=== PATIENT | male | born 1960 | race Two or more races ===

== ENCOUNTER 2016-06-28 02:38 | Inpatient (IN) | payer BC ==
[2016-06-28] MEDS ORDERED: Sodium Chloride 0.9% 1,000 ML IV ONE (02:39)
--- NOTE | 2016-06-28 02:40 | EDM.PDOC ---
ED HPI GENERAL MEDICAL PROBLEM - General Chief Complaint: General Stated Complaint: DIZZINESS Time Seen by Provider: 06/28/16 02:40 Source of Information: Reports: Patient - History of Present Illness INITIAL COMMENTS - FREE TEXT/NARRATIVE: HISTORY AND PHYSICAL: History of present illness: [] Patient presents with dizziness off and on since 8 PM Has multiple sick contacts at work, at approximately 840 tonight she began to feel dizzy while at work, he went home early to rest dizziness had resolved, although he did have 4-6 loose watery stools at that time, tonight he awoke to go to the bathroom and he was again dizzy, his was concerned and called for an ambulance. No fever nausea vomiting diarrhea constipation chest pain shortness breath headache palpitations no urinary symptoms dizziness only present while he stands EMS noted he was orthostatic began a 1 L normal saline bolus He does have history of [place] in 2006 Colonoscopy to 4 months prior patient states was negative for any findings Review of systems: As per history of present illness and below otherwise all systems reviewed and negative. Past medical history: As per history of present illness and as reviewed below otherwise noncontributory. Surgical history: As per history of present illness and as reviewed below otherwise noncontributory. Social history: No reported history of drug or alcohol abuse. Family history: As per history of present illness and as reviewed below otherwise noncontributory. Physical exam: HEENT: Atraumatic, normocephalic, pupils reactive, negative for conjunctival pallor or scleral icterus, mucous membranes moist, throat clear, neck supple, nontender, trachea midline. Lungs: Clear to auscultation, breath sounds equal bilaterally, chest nontender. Heart: S1S2, regular, negative for clicks, rubs, or JVD. Abdomen: Soft, nondistended, nontender. Negative for masses or hepatosplenomegaly. Negative for costovertebral tenderness. Pelvis: Stable nontender. Genitourinary: Deferred. Rectal: Deferred. Extremities: Atraumatic, negative for cords or calf pain. Neurovascular unremarkable. Neuro: Awake, alert, oriented. Cranial nerves II through XII unremarkable. Cerebellum unremarkable. Motor and sensory unremarkable throughout. Exam nonfocal. Diagnostics: [] Lab as below EKG Chest one view Therapeutics: [] Liter normal saline bolus followed by normal saline 125 cc per hour Transfuse 2 units packed red blood cells Protonix 80 mg IV Protonix drip to follow Impression: Symptomatic anemia GI bleed Definitive disposition and diagnosis as appropriate pending reevaluation and review of above. - Related Data Allergies Allergy/AdvReac Type Severity Reaction Status Date / Time No Known Allergies Allergy Verified 12/28/13 08:50 Home Meds: Home Meds Aspirin 81 mg PO DAILY 06/28/16 [History] Lisinopril [Lisinopril] 10 mg PO DAILY 06/28/16 [History] atorvaSTATin [Lipitor] 40 mg PO BEDTIME 06/28/16 [History] ED ROS GENERAL - Review of Systems Review Of Systems: ROS reveals no pertinent complaints other than HPI. ED EXAM, GENERAL - Physical Exam Exam: See Below Course - Vital Signs Last Recorded V/S: Last Vital Signs Temp 36.4 C 06/28/16 02:40 Pulse 93 06/28/16 02:40 Resp 16 06/28/16 02:40 BP 114/68 06/28/16 02:40 Pulse Ox 99 06/28/16 02:40 - Orders/Labs/Meds Orders: Active Orders 24 hr Category Date Time Status EKG Documentation Completion [RC] STAT Care 06/28/16 02:39 Active Fecal Occult Blood Collection [RC] ASDIRECTED Care 06/28/16 03:17 Active Chest 1V Frontal [CR] Stat Exams 06/28/16 02:39 Taken COMPREHENSIVE METABOLIC PN,CMP [CHEM] Stat Lab 06/28/16 02:43 Received Guaiac [OCCULT BLOOD DIAGNOSTIC] [OP] Stat Lab 06/28/16 03:13 Ordered INR,PT,PROTHROMBIN TIME [COAG] Stat Lab 06/28/16 03:24 Ordered RED BLOOD CELLS LP [BBK] Stat Lab 06/28/16 03:07 Ordered TROPONIN I [CHEM] Stat Lab 06/28/16 02:43 Received TYPE AND SCREEN [BBK] Stat Lab 06/28/16 03:07 Ordered Pantoprazole [Protonix IV] 80 mg Med 06/28/16 03:30 Active Sodium Chloride 0.9% [Normal Saline] 100 ml IV .Continuous Sodium Chloride 0.9% [Normal Saline] 1,000 ml Med 06/28/16 02:39 Active IV STAT Medication Orders Sodium Chloride (Normal Saline) 1,000 mls @ 999 mls/hr IV STAT ONE Stop: 06/28/16 03:39 Last Admin: 06/28/16 02:44 Dose: 999 mls/hr Pantoprazole Sodium 80 mg/ (Sodium Chloride) 100 mls @ 10 mls/hr IV .Continuous EMANUEL Labs: Laboratory Tests 06/28/16 06/28/16 Range/Units 02:43 02:50 WBC 8.45 (4.0-11.0) K/uL RBC 2.75 L (4.50-5.90) M/uL Hgb 8.8 L (13.0-17.0) g/dL Hct 25.8 L (38.0-50.0) % MCV 93.8 (80.0-98.0) fL MCH 32.0 (27.0-32.0) pg MCHC 34.1 (31.0-37.0) g/dL RDW Std Deviation 37.6 (28.0-62.0) fl RDW Coeff of Mila 11 (11.0-15.0) % Plt Count 242 (150-400) K/uL MPV 8.60 (7.40-12.00) fL Neut % (Auto) 60.3 (48.0-80.0) % Lymph % (Auto) 29.6 (16.0-40.0) % [place] % (Auto) 9.3 (0.0-15.0) % Eos % (Auto) 0.6 (0.0-7.0) % Baso % (Auto) 0.2 (0.0-1.5) % Neut # 5.1 (1.4-5.7) K/uL Lymph # 2.5 H (0.6-2.4) K/uL [place] # 0.8 (0.0-0.8) K/uL Eos # 0.1 (0.0-0.7) K/uL Baso # 0.0 (0.0-0.1) K/uL Urine Color YELLOW Urine Appearance CLEAR Urine pH 6.0 (5.0-8.0) Ur Specific [place] 1.010 (1.001-1.035) Urine Protein NEGATIVE (NEGATIVE) mg/dL Urine Glucose (UA) NEGATIVE (NEGATIVE) mg/dL Urine Ketones 15 H (NEGATIVE) mg/dL Urine Occult Blood NEGATIVE (NEGATIVE) Urine Nitrite NEGATIVE (NEGATIVE) Urine Bilirubin NEGATIVE (NEGATIVE) Urine Urobilinogen 0.2 (<2.0) EU/dL Ur Leukocyte Esterase NEGATIVE (NEGATIVE) Urine WBC 0-1 (0-5/HPF) Ur Epithelial Cells RARE (NONE-FEW) Urine Bacteria RARE (NEGATIVE) Meds: Medications Generic Name Dose Route Start Last Admin Trade Name Freq PRN Reason Stop Dose Admin Sodium Chloride 1,000 mls @ 999 mls/hr 06/28/16 02:39 06/28/16 02:44 Normal Saline IV 06/28/16 03:39 999 mls/hr STAT ONE Administration Pantoprazole Sodium 80 mg/ 100 mls @ 10 mls/hr 06/28/16 03:30 Sodium Chloride IV .Continuous EMANUEL Discontinued Medications Generic Name Dose Route Start Last Admin Trade Name Freq PRN Reason Stop Dose Admin Pantoprazole Sodium 80 mg 06/28/16 03:11 Protonix Iv IVPUSH 06/28/16 03:12 .BOLUS ONE Departure - Departure Time of Disposition: 03:26 Disposition: Admitted As Inpatient 68 Condition: fair Clinical Impression: Symptomatic anemia, GI bleed Referrals: PCP,None [Primary Care Provider] - Forms: ED Department Discharge - My Orders Last 24 Hours: My Active Orders 06/28/16 02:39 EKG Documentation Completion [RC] STAT Chest 1V Frontal [CR] Stat Sodium Chloride 0.9% [Normal Saline] 1,000 ml IV STAT 06/28/16 02:43 COMPREHENSIVE METABOLIC PN,CMP [CHEM] Stat TROPONIN I [CHEM] Stat 06/28/16 03:07 RED BLOOD CELLS LP [BBK] Stat TYPE AND SCREEN [BBK] Stat 06/28/16 03:13 Guaiac [OCCULT BLOOD DIAGNOSTIC] [OP] Stat 06/28/16 03:17 Fecal Occult Blood Collection [RC] ASDIRECTED 06/28/16 03:24 INR,PT,PROTHROMBIN TIME [COAG] Stat 06/28/16 03:30 Pantoprazole [Protonix IV] 80 mg Sodium Chloride 0.9% [Normal Saline] 100 ml IV .Continuous - Assessment/Plan Last 24 Hours: My Active Orders 06/28/16 02:39 EKG Documentation Completion [RC] STAT Chest 1V Frontal [CR] Stat Sodium Chloride 0.9% [Normal Saline] 1,000 ml IV STAT 06/28/16 02:43 COMPREHENSIVE METABOLIC PN,CMP [CHEM] Stat TROPONIN I [CHEM] Stat 06/28/16 03:07 RED BLOOD CELLS LP [BBK] Stat TYPE AND SCREEN [BBK] Stat 06/28/16 03:13 Guaiac [OCCULT BLOOD DIAGNOSTIC] [OP] Stat 06/28/16 03:17 Fecal Occult Blood Collection [RC] ASDIRECTED 06/28/16 03:24 INR,PT,PROTHROMBIN TIME [COAG] Stat 06/28/16 03:30 Pantoprazole [Protonix IV] 80 mg Sodium Chloride 0.9% [Normal Saline] 100 ml IV .Continuous
[2016-06-28] MEDS ORDERED: Pantoprazole 40 MG Vial IVPUSH ONE (03:11)
[2016-06-28 03:19] LABS: CHLORIDE,CL 108 mmol/L (98-110); SODIUM,NA 137 mmol/L (136-146)
[2016-06-28] MEDS: Sodium Chloride 0.9% 1,000 ML IV SCH ×2 (03:34→20:13)
[2016-06-28] MEDS: Pantoprazole 80 MG in Sodium Chloride 0.9% 100 ML IV SCH ×3 (04:12→17:04)
[2016-06-28] MEDS ORDERED: Flu Vaccine 2016-17(36Mos+)/PF 60 MCG/0.5 ML Syringe IM ONE (04:42)
[2016-06-28] MEDS: Sucralfate Suspension 1 GM/10 ML Cup PO SCH ×4 (05:24→21:43)
--- NOTE | 2016-06-28 09:32 | PCM.HP ---
H&P History of Present Illness - General Date of Service: 06/28/16 - History of Present Illness Initial Comments - Free Text/Narative: 55 yo male with history of [place] admitted for UGIB. He had first episode of dizziness last night at work. He came home and rested. He had loose non-bloody stools x 4. His dizziness returned when he tried to use the restroom. He denies chest pain, sob, abdominal pain, fever, chills, vomiting. His was concerned and called EMS. In the ED, He was found to have + guaic stool, HB 8.8. He was given IVF and started on protonix drip. Dr. Miller general surgery consulted. He recommended protocol for GIB. - Related Data Allergies/Adverse Reactions: Allergies Allergy/AdvReac Type Severity Reaction Status Date / Time No Known Allergies Allergy Verified 12/28/13 08:50 Home Medications: Home Meds Aspirin 81 mg PO DAILY 06/28/16 [History] Lisinopril [Lisinopril] 10 mg PO DAILY 06/28/16 [History] atorvaSTATin [Lipitor] 40 mg PO BEDTIME 06/28/16 [History] Past Medical History Cardiovascular History: Reports: Hypertension, [place], Stents Social & Family History - Family History Family Medical History: Noncontributory - Tobacco Use Smoking Status *Q: Never Smoker Second Hand Smoke Exposure: No - Caffeine Use Caffeine Use: Reports: Coffee - Recreational Drug Use Recreational Drug Use: No H&P Review of Systems - Review of Systems: Review Of Systems: See Below General: Reports: no symptoms HEENT: Reports: no symptoms Pulmonary: Reports: no symptoms Cardiovascular: Reports: no symptoms Gastrointestinal: Reports: No symptoms Genitourinary: Reports: no symptoms Musculoskeletal: Reports: no symptoms Skin: Reports: no symptoms, erythema Psychiatric: Reports: no symptoms Neurological: Reports: dizziness Hematologic/Lymphatic: Reports: no symptoms Immunologic: Reports: no symptoms Exam - Exam Exam: See Below - Vital Signs Vital Signs: Last Vital Signs Temp 98.8 F 06/28/16 09:25 Pulse 73 06/28/16 09:25 Resp 18 06/28/16 09:25 BP 100/57 L 06/28/16 09:25 Pulse Ox 97 06/28/16 09:25 Weight: 89.993 kg - Exam Quality Assessment: supplemental oxygen General: alert, oriented HEENT: Conjunctiva clear, EOMI Neck: supple, trachea midline Lungs: Clear to auscultation, Normal respiratory effort Cardiovascular: regular rate, regular rhythm Abdomen: normal bowel sounds, soft Back Exam: normal inspection Extremities: normal inspection Peripheral Pulses: 2+: dorsalis pedis (L), dorsalis pedis (R) Skin: warm, dry, intact Neurological: cranial nerves intact Neuro Extensive - Mental Status: alert, oriented x3, normal mood/affect, normal cognition Psychiatric: alert, normal affect, normal mood - Patient Data Result Diagrams: 06/28/16 02:43 06/28/16 02:43 *Q Meaningful Use (ADM) - VTE *Q VTE Criteria *Q: - Stroke *Q Stroke Criteria *Q: - AMI *Q AMI Criteria *Q: Problem List Initiated/Reviewed/Updated: Yes Orders Last 24hrs: Active Orders 24 hr Category Date Time Status Communication Order [RC] ROUTINE Care 06/28/16 04:25 Active Communication Order [RC] ROUTINE Care 06/28/16 04:27 Active Communication Order [RC] ROUTINE Care 06/28/16 04:29 Active Telemetry Monitoring [Cardiac Monitoring] [RC] . Care 06/28/16 04:28 Active DIRECTED Clear Liquid Diet [DIET] Diet 06/28/16 Breakfast Active Sodium Chloride 0.9% [Normal Saline] 1,000 ml Med 06/28/16 03:45 Active IV ASDIRECTED Sucralfate [Carafate] Med 06/28/16 04:30 Active 1 gm PO Q6H Transfuse Red Blood Cells [COMM] Routine Oth 06/28/16 04:24 Ordered Medication Orders Pantoprazole Sodium 80 mg/ (Sodium Chloride) 100 mls @ 10 mls/hr IV .Continuous EMANUEL Last Admin: 06/28/16 04:12 Dose: 10 mls/hr Sodium Chloride (Normal Saline) 1,000 mls @ 125 mls/hr IV ASDIRECTED EMANUEL Last Admin: 06/28/16 03:34 Dose: 125 mls/hr Sucralfate (Carafate) 1 gm PO Q6H EMANUEL Last Admin: 06/28/16 05:24 Dose: 1 gm Assessment/Plan Comment:: Hb 8.8: transfuse 2 units PRBC EGD tomorrow. continue IVF, I.V protonix, carafate.
--- NOTE | 2016-06-28 09:33 | PCM.SN ---
- Free Text/Narrative Note: pt seen, chart reviewed; cx dicted, [id number]; likely ugib, initiate gib protocol, avoid ASA or blood thinner, strict i/o, 2 large bore iv access; PPI as you are doing, and txf to H/H above 10; plan egd this week;
--- NOTE | 2016-06-28 18:08 | CR ---
EXAM DATE: 06/28/16 PATIENT'S AGE: 55 Patient: ANDREI HERNANDEZ Facility: [place], [place] Site . Site : [id number] Study: XRay Chest [id number]/27/2017 3:08:51 AM Ordering Physician: Yumiko Vallecillo Final Report: INDICATION: Dizzy TECHNIQUE: Chest 1 view COMPARISON: None FINDINGS: Cardiovascular and mediastinum: Heart size and vasculature are normal in caliber and appearance. Mediastinum is within normal limits. Lungs and pleural space: No focal consolidation. No sign of pleural effusion. No pneumothorax. Bones and soft tissues: No significant findings. IMPRESSION: No acute cardiopulmonary disease. Dictated by Carter Delcid MD @ 06/28/2016 3:34:07 AM Dictated by: Carter Delcid MD @ 06/28/2016 03:34:13 (Electronic Signature) Report Signed by Proxy and Original Signed Document filed in the Medical Record. [facility]
--- NOTE | 2016-06-28 18:53 | CONS ---
DATE OF CONSULTATION: 06/28/2016 DATE OF : 1960 PRIMARY CARE PHYSICIAN: None PCP CONSULTING PHYSICIANS: Dr. Sarkar. CONCERNING QUESTION: Black tarry stool. HISTORY OF PRESENT ILLNESS: The patient is a 55-year-old gentleman and complained in the job feels dizzy, and went home rest and note for black tarry stool, and one in the emergency room, now admitted for further management. The patient denied bright red blood per rectum. Denied hematemesis. Denied hemoptysis and him priscilla pieces and denied prior episode. The patient said he felt lightheaded, near-syncope, but never really fall down and had colonoscopy a year ago in [place] and reportedly doing fine, no finding. The patient also remarked that he was feeling stomach pain for the last couple days, but he denied taking any NSAID. The patient is on 81 mg aspirin. PAST MEDICAL HISTORY: He had [place] 10 years ago. Has hypertension. Denies CVA or diabetic. PAST SURGICAL HISTORY: No abdominal surgery except colonoscopy, and never have EGD done in the past. PHYSICAL EXAMINATION: GENERAL: A very pleasant, nice gentleman, smiled to the doctor and in no acute distress. HEENT: Normocephalic, atraumatic. Sclerae anicteric. LUNGS: Clear to auscultation. HEART: Regular rate and rhythm. ABDOMEN: Soft, nondistended. No pulsating, tender midline abdominal structure. No surgical scar. Nontender in epigastrium. LABORATORY DATA: Upon consultation, white count is 8, and H and H is 9 and 26, platelet is 242. BUN is 44, creatinine is 0.8, total bilirubin is 0.4, AST and ALT of 14 and 15 ALT and alkaline phosphatase is 45. Albumin is low at 2.9. UA, no signs or symptoms of infection. IMPRESSION: Black tarry stool daily and have a near-syncope episode and H and H is a little bit low, probably have upper gastrointestinal bleeding. We will initiate gastrointestinal bleeding protocol to allow triple IV access. Strict in and out. Monitor urine output and avoid any anticoagulation stop aspirin. The patient would benefit from upper endoscopy study and we will request previous colonoscopy report. We will follow the patient with you and transfuse to H and H above 10. As always, thank you for the kind referral. GALLITO / JOVITA /[id number]
--- NOTE | 2016-06-28 19:55 | PCM.PREANE ---
Preanesthetic Assessment - ANESTHESIA/TRANSFUSION/FAMILY HX Anesthesia/Transfusion History: Prior Anesthesia (Pt has never had GA, only sedation for procedures (colonoscopy/stents)) Type of Anesthesia Reaction: Denies: Allergy, Anesthesia Awareness, Excessive Somnolence, Excessive Nausea/Vomiting, Excessive Itching, Excessive Shivering, Malignant Hyperthermia, Malignant Hyperthermia, Family History, Pseudocholinesterase Deficiency, Pseudocholinesterase Deficiency, Family History of, Urinary Retention, Unknown, Other (see below) Family History of Anesthesia Reaction: No Type of Transfusion Reactions: Denies: Anaphylaxis, Bloody Urine, Chills, Fainting/Dizziness, Fever, Flank Pain, Hemolytic Reaction, Hives, Rash, Transfusion Related Acute Lung Injury, Unknown, Other (see below) - REVIEW OF SYSTEMS Constitutional: Reports: no symptoms 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 Respiratory: Reports: no symptoms Cardiovascular: Reports: no symptoms, blood pressure problem (hypertension, controlled with lisinopril) GI: Reports: no symptoms Other: Reports: none - PHYSICAL ASSESSMENT O2 Sat by Pulse Oximetry: 94 RR: 18 Temp: 37.0 C Vital Signs: Last Vital Signs Temp 36.8 C 06/28/16 16:00 Pulse 61 06/28/16 16:00 Resp 18 06/28/16 16:00 BP 102/62 06/28/16 16:00 Pulse Ox 94 L 06/28/16 16:00 Height: 1.73 m Weight: 89.993 kg NPO Status Date: 06/28/16 NPO Status Time: 23:00 ASA Class: 2 Mental Status: alert & oriented x3 Airway Class: Mallampati = 2 Dentition: Reports: normal dentition Thyro-Mental Finger Breadths: 3 Mouth Opening Finger Breadths: 3 ROM/Head Extension: full Respiratory Status: lungs clear to auscultation bilaterally Cardiovascular Status: regular rate & rhythm, normal S1, S2, no murmur, blood pressure WNL - LAB Values: Laboratory Last Values WBC 8.45 K/uL (4.0-11.0) 06/28/16 02:43 RBC 2.75 M/uL (4.50-5.90) L 06/28/16 02:43 Hgb 10.1 g/dL (13.0-17.0) L 06/28/16 14:11 Hct 29.1 % (38.0-50.0) L 06/28/16 14:11 MCV 93.8 fL (80.0-98.0) 06/28/16 02:43 MCH 32.0 pg (27.0-32.0) 06/28/16 02:43 MCHC 34.1 g/dL (31.0-37.0) 06/28/16 02:43 RDW Std Deviation 37.6 fl (28.0-62.0) 06/28/16 02:43 RDW Coeff of Mila 11 % (11.0-15.0) 06/28/16 02:43 Plt Count 242 K/uL (150-400) 06/28/16 02:43 MPV 8.60 fL (7.40-12.00) 06/28/16 02:43 Neut % (Auto) 60.3 % (48.0-80.0) 06/28/16 02:43 Lymph % (Auto) 29.6 % (16.0-40.0) 06/28/16 02:43 [place] % (Auto) 9.3 % (0.0-15.0) 06/28/16 02:43 Eos % (Auto) 0.6 % (0.0-7.0) 06/28/16 02:43 Baso % (Auto) 0.2 % (0.0-1.5) 06/28/16 02:43 Neut # 5.1 K/uL (1.4-5.7) 06/28/16 02:43 Lymph # 2.5 K/uL (0.6-2.4) H 06/28/16 02:43 [place] # 0.8 K/uL (0.0-0.8) 06/28/16 02:43 Eos # 0.1 K/uL (0.0-0.7) 06/28/16 02:43 Baso # 0.0 K/uL (0.0-0.1) 06/28/16 02:43 INR 1.05 (0.86-1.11) 06/28/16 02:43 Sodium 137 mmol/L (136-146) 06/28/16 02:43 Potassium 4.4 mmol/L (3.5-5.1) 06/28/16 02:43 Chloride 108 mmol/L (98-110) 06/28/16 02:43 Carbon Dioxide 24 mmol/L (21-31) 06/28/16 02:43 BUN 44 mg/dL (6.0-23.0) H 06/28/16 02:43 Creatinine 0.8 mg/dL (0.6-1.5) 06/28/16 02:43 Est Cr Clr Drug Dosing 103.31 mL/min 06/28/16 02:43 Estimated GFR (MDRD) > 60.0 ml/min 06/28/16 02:43 Glucose 105 mg/dL (60-110) 06/28/16 02:43 Calcium 7.9 mg/dL (8.8-10.8) L 06/28/16 02:43 Total Bilirubin 0.4 mg/dL (0.1-1.5) 06/28/16 02:43 AST 14 IU/L (5-40) 06/28/16 02:43 ALT 15 IU/L (8-54) 06/28/16 02:43 Alkaline Phosphatase 45 (40-150) 06/28/16 02:43 Troponin I < 0.10 NG/ML (0.0-0.29) 06/28/16 02:43 Total Protein 5.0 g/dL (6.0-8.0) L 06/28/16 02:43 Albumin 2.9 g/dL (3.5-5.0) L 06/28/16 02:43 Globulin 2.1 g/dL (2.0-3.5) 06/28/16 02:43 Albumin/Globulin Ratio 1.4 (1.3-2.8) 06/28/16 02:43 Urine Color YELLOW 06/28/16 02:50 Urine Appearance CLEAR 06/28/16 02:50 Urine pH 6.0 (5.0-8.0) 06/28/16 02:50 Ur Specific [place] 1.010 (1.001-1.035) 06/28/16 02:50 Urine Protein NEGATIVE mg/dL (NEGATIVE) 06/28/16 02:50 Urine Glucose (UA) NEGATIVE mg/dL (NEGATIVE) 06/28/16 02:50 Urine Ketones 15 mg/dL (NEGATIVE) H 06/28/16 02:50 Urine Occult Blood NEGATIVE (NEGATIVE) 06/28/16 02:50 Urine Nitrite NEGATIVE (NEGATIVE) 06/28/16 02:50 Urine Bilirubin NEGATIVE (NEGATIVE) 06/28/16 02:50 Urine Urobilinogen 0.2 EU/dL (<2.0) 06/28/16 02:50 Ur Leukocyte Esterase NEGATIVE (NEGATIVE) 06/28/16 02:50 Urine WBC 0-1 (0-5/HPF) 06/28/16 02:50 Ur Epithelial Cells RARE (NONE-FEW) 06/28/16 02:50 Urine Bacteria RARE (NEGATIVE) 06/28/16 02:50 Blood Type A POSITIVE 06/28/16 03:15 Antibody Screen NEGATIVE 06/28/16 03:15 Crossmatch See Detail 06/28/16 03:15 - ALLERGIES Allergies/Adverse Reactions: Allergies Allergy/AdvReac Type Severity Reaction Status Date / Time No Known Allergies Allergy Verified 12/28/13 08:50 - ANESTHESIA PLAN Anesthesia Type Planned: MAC - ACKNOWLEDGEMENTS Pt an appropriate candidate for the planned anesthesia: Yes Alternatives and risks of anesthesia discussed w pt/guardian: Yes Pt/Guardian understands and agree with anesthesia plan: Yes PreAnesthesia Questionnaire Cardiovascular History: Reports: Hypertension, [place], Stents Other Cardiovascular History: Pt had MS about 10 yrs ago. Cause unknown. Has had regular follow up visits with certified orthotist practice manager in [place]. Last visit about a year ago with no problems found. Has appointment in July of this year including an echocardiogram. Denies any dyspnea with exertion. 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 Heart rate regular today. - SUBSTANCE USE Smoking Status *Q: Never Smoker Second Hand Smoke Exposure: No Recreational Drug Use History: No - HOME MEDS Home Medications: Home Meds Aspirin 81 mg PO DAILY 06/28/16 [History] Lisinopril [Lisinopril] 10 mg PO DAILY 06/28/16 [History] atorvaSTATin [Lipitor] 40 mg PO BEDTIME 06/28/16 [History] - CURRENT (IN HOUSE) MEDS Current Meds: Current Medications Sodium Chloride (Normal Saline) 1,000 mls @ 125 mls/hr IV ASDIRECTED [facility] Last Admin: 06/28/16 03:34 Dose: 125 mls/hr Lactated Ringer's (Ringers, Lactated) 1,000 mls @ 125 mls/hr IV ASDIRECTED [facility] Pantoprazole Sodium 80 mg/ (Sodium Chloride) 100 mls @ 10 mls/hr IV Q10H EMANUEL Last Admin: 06/28/16 17:04 Dose: 10 mls/hr Sucralfate (Carafate) 1 gm PO Q6H EMANUEL Last Admin: 06/28/16 15:36 Dose: 1 gm Discontinued Medications Sodium Chloride (Normal Saline) 1,000 mls @ 999 mls/hr IV STAT ONE Stop: 06/28/16 03:39 Last Admin: 06/28/16 02:44 Dose: 999 mls/hr Pantoprazole Sodium 80 mg/ (Sodium Chloride) 100 mls @ 10 mls/hr IV .Continuous EMANUEL Last Admin: 06/28/16 17:02 Dose: 10 mls/hr Influenza Virus Vaccine (Fluzone/Fluarix Vaccine) 60 mcg IM .ONCE ONE Stop: 06/28/16 04:43 Pantoprazole Sodium (Protonix Iv) 80 mg IVPUSH .BOLUS ONE Stop: 06/28/16 03:12 Last Admin: 06/28/16 03:35 Dose: 80 mg
[2016-06-29] MEDS: Pantoprazole 80 MG in Sodium Chloride 0.9% 100 ML IV SCH ×2 (03:34→13:30)
[2016-06-29] MEDS: Sucralfate Suspension 1 GM/10 ML Cup PO SCH ×2 (03:54→10:40)
[2016-06-29] MEDS ORDERED: Lactated Ringers 1,000 ML IV SCH (05:00)
--- NOTE | 2016-06-29 08:29 | PCM.SN ---
- Free Text/Narrative Note: egd today
[2016-06-29] MEDS ORDERED: Propofol 200 MG/20 ML SDV ONE (11:59)
[2016-06-29] MEDS ORDERED: fentaNYL 100 MCG/2 ML SDV ONE (11:59)
[2016-06-29] MEDS ORDERED: Midazolam 1 MG/ML 2 ML SDV ONE (11:59)
--- NOTE | 2016-06-29 12:56 | PCM.OPNOTE ---
- General Post-Op/Procedure Note Date of Surgery/Procedure: 06/29/16 Operative Procedure(s): egd Findings: large crater appearance ulcer defect at 1 cm distal to GE junction, covered with exudates; no active bleeding or old blood observed; no bx attempted; will need repeat egd 3 - 6 mo; gastric ulcer ppi for 4 - 8 wks, e.g. prilosec 40 mg PO QDay X 4 - 8 wks; [id number] Pre Op Diagnosis: gib Post-Op Diagnosis: gastric ulcer Anesthesia Technique: Moderate sedation Primary Surgeon: Isaiah Miller Complications: None Condition: Good Free Text/Narrative:: Intake & Output 06/28/16 06/29/16 06/29/16 22:59 06:59 14:59 Intake Total 2870 2251 Output Total 2270 0 Balance 600 201
--- NOTE | 2016-06-29 13:02 | PCM.POSTAN ---
POST ANESTHESIA ASSESSMENT - MENTAL STATUS Mental Status: alert, oriented - RESPIRATORY Respiratory Status: respiratory rate WNL, airway patent, O2 saturation stable - CARDIOVASCULAR CV Status: pulse rate WNL, blood pressure stable - GASTROINTESTINAL GI Status: no symptoms - PAIN Pain Score: 0 - POST OP HYDRATION Hydration Status: adequate & stable
[2016-06-29 13:47] VITALS: BP 95/73
--- NOTE | 2016-06-29 14:41 | PCM48HPAN ---
Post Anesthesia Note - EVALUATION WITHIN 48HRS OF ANESTHETIC Vital Signs in Normal Range: Yes Patient Participated in Evaluation: Yes Respiratory Function Stable: Yes Airway Patent: Yes Cardiovascular Function Stable: Yes Hydration Status Stable: Yes Pain Control Satisfactory: Yes Nausea and Vomiting Control Satisfactory: Yes Mental Status Recovered: Yes
--- NOTE | 2016-06-29 22:05 | OR ---
SURGEON: Isaiah Miller MD DATE OF PROCEDURE: 06/29/2016 PREOPERATIVE DIAGNOSIS: Upper gastrointestinal bleeding. POSTOPERATIVE DIAGNOSIS: Gastric ulcer. PROCEDURE PERFORMED: EGD. DESCRIPTION OF PROCEDURE: EGD: The patient was taken to the endoscopy room, and with the GLOVE CLEANER, Diprivan was administered. A well-lubricated EGD scope was gently inserted through the oropharynx, down the esophagus, passing through the gastroesophageal junction, into the stomach. The mucosa was examined upon the passage. Any etiology will be noted. Once in the stomach, we continued to advance to the distal antrum, passed through the pylorus into the second portion of the duodenum. Again, the mucosa was examined for any abnormality and etiology. The scope was then retrieved back to the stomach and then retroflexed to look at the fundus of the stomach. If a biopsy was indicated, we will biopsy the antrum, body, and gastroesophageal junction. The air will be sucked out while the scope is retrieved to reduce the patient's discomfort. The patient tolerated the procedure well. There were no intraoperative complications. Dr. Miller was present through the whole procedure. Prior to surgery, a time-out had been called, the patient identified, procedure identified and antibiotic administered. In this particular patient,no biopsy attempted because of the GI bleeding. FINDINGS: 1. The patient was easily sedated with GLOVE CLEANER and Diprivan. The patient is soundly snoring. 2. The patient's oropharynx and proximal esophagus is free of disease. No inflammation, stricture, ulceration, or varicosity observed. Distal esophagus, the GE junction at 40 with very minimal color change such as a very mild acid reflux. Right past the GE junction at 40, there is a crater appearance ulcer structure about 1.5 cm and couple of exudate and there was no active bleeding. No blood observed through the whole stomach examination. Rugae is normal in appearance, food or bile in the stomach. Duodenum is grossly normal. Retrieved back to the stomach, retroflexed look at the fundus, stomach and there is no etiology. No hiatal hernia and sucked out the air while scope retrieved. No attempt to do a biopsy on active GI bleeding risk. The patient would benefit from PPI for gastric ulcer for 4 to 8 weeks, for example Prilosec 40 mg p.o. daily. The patient would benefit from repeat EGD examination 3 to 6 weeks from now. Thank you for the kind referral. GALLITO HUSSEIN /[id number]
--- NOTE | 2016-06-30 12:46 | PCM.DCSUM1 ---
<Merlyn Jean - Last Filed: 06/30/16 13:57> Discharge Summary - Hospital Course Free Text/Narrative:: 55 yo male with history of NC s/p stent ten years ago admitted for UGIB. He was c/o of dizziness, black tarry stools, weakness one day prior to admission. He takes baby aspirin once a day. In the ED, he was found to have hemoglobin 8.8 and positive guaic stools. GIB protocol was intiated. He remained somewhat symptomatic and weak. He was transfused 2 units of PRBC to [facility] HB 10.4 for EGD. General surgery was consulted for EGD. He did have 1.5 cm gastric ulcer. His dizziness and weakness resolved. He was discharged with protonix, carafate and to avoid NSAID. He is to follow up with Dr. MILLER for repeat endoscopy in 1-2 months and PCP in one week. - Discharge Data Discharge Date: 06/29/16 Discharge Disposition: Home, Self-Care 01 Condition: Good - Patient Summary/Data Operative Procedure(s) Performed: egd - Patient Instructions Diet: Heart Healthy Diet Activity: As Tolerated - Discharge Plan Prescriptions/Med Rec: Pantoprazole Sodium [Protonix] 40 mg PO DAILY #30 tablet. Sucralfate [Carafate] 1 gm PO Q6H #120 cup Home Medications: Home Meds Lisinopril 10 mg PO DAILY 06/28/16 [History] atorvaSTATin [Lipitor] 40 mg PO BEDTIME 06/28/16 [History] Pantoprazole Sodium [Protonix] 40 mg PO DAILY #30 tablet. 06/29/16 [Rx] Sucralfate [Carafate] 1 gm PO Q6H #120 cup 06/29/16 [Rx] Patient Handouts: Anemia, Nonspecific, Sucralfate tablets, Gastrointestinal Bleeding, [id number], Pantoprazole tablets Referrals: Richie Martínez MD [Physician] - 07/06/16 Isaiah Miller MD [Physician] - 07/13/16 Abiodun Jean DO [Ordering Only Provider] - 07/06/16 1:15 pm - General Info Date of Service: 06/29/16 Functional Status: Reports: pain controlled - Review of Systems General: Reports: no symptoms HEENT: Reports: no symptoms Pulmonary: Reports: no symptoms Cardiovascular: Reports: no symptoms Gastrointestinal: Reports: No symptoms Genitourinary: Reports: no symptoms Musculoskeletal: Reports: no symptoms Skin: Reports: no symptoms Neurological: Reports: no symptoms Psychiatric: Reports: no symptoms - Patient Data Vitals - Most Recent: Last Vital Signs Temp 98.6 F 06/29/16 12:00 Pulse 61 06/29/16 12:00 Resp 13 06/29/16 13:05 BP 95/73 06/29/16 13:05 Pulse Ox 96 06/29/16 13:05 Weight - Most Recent: 198 lb 6.4 oz I&O - Last 24 hours: Intake & Output 06/29/16 06/30/16 06/30/16 22:59 06:59 14:59 Intake Total 1120 Output Total 1640 Balance -520 Med Orders - Current: Current Medications Discontinued Medications Fentanyl (Sublimaze) Confirm Administered Dose 100 mcg .ROUTE .STK-MED ONE Stop: 06/29/16 12:00 Sodium Chloride (Normal Saline) 1,000 mls @ 999 mls/hr IV STAT ONE Stop: 06/28/16 03:39 Last Admin: 06/28/16 02:44 Dose: 999 mls/hr Pantoprazole Sodium 80 mg/ (Sodium Chloride) 100 mls @ 10 mls/hr IV .Continuous EMANUEL Last Admin: 06/28/16 17:02 Dose: 10 mls/hr Sodium Chloride (Normal Saline) 1,000 mls @ 125 mls/hr IV ASDIRECTED EMANUEL Last Admin: 06/28/16 20:13 Dose: 125 mls/hr Lactated Ringer's (Ringers, Lactated) 1,000 mls @ 125 mls/hr IV ASDIRECTED EMANUEL Last Admin: 06/29/16 03:50 Dose: 125 mls/hr Pantoprazole Sodium 80 mg/ (Sodium Chloride) 100 mls @ 10 mls/hr IV Q10H EMANUEL Last Admin: 06/29/16 13:30 Dose: Not Given Influenza Virus Vaccine (Fluzone/Fluarix Vaccine) 60 mcg IM .ONCE ONE Stop: 06/28/16 04:43 Last Admin: 06/29/16 16:22 Dose: 60 mcg Midazolam HCl (Versed 1 Mg/Ml) Confirm Administered Dose 2 mg .ROUTE .STK-MED ONE Stop: 06/29/16 12:00 Pantoprazole Sodium (Protonix Iv) 80 mg IVPUSH .BOLUS ONE Stop: 06/28/16 03:12 Last Admin: 06/28/16 03:35 Dose: 80 mg Propofol (Diprivan 20 Ml) Confirm Administered Dose 400 mg .ROUTE .STK-MED ONE Stop: 06/29/16 12:00 Sucralfate (Carafate) 1 gm PO Q6H EMANUEL Last Admin: 06/29/16 10:40 Dose: Not Given - Exam General: Reports: alert, oriented HEENT: Reports: Pupils equal, EOMI Neck: Reports: supple Lungs: Reports: Clear to auscultation, Normal respiratory effort Cardiovascular: Reports: regular rate, regular rhythm Abdomen: Reports: bowel sounds present, soft Back Exam: Reports: normal inspection, full range of motion Extremities: Reports: no edema Skin: Reports: warm, dry, intact Neurological: Reports: no new focal deficit Psy/Mental Status: Reports: alert, normal affect, normal mood *Q Meaningful Use (DIS) - VTE *Q VTE Criteria *Q: - Stroke *Q Stroke Criteria *Q: - AMI *Q AMI Criteria *Q: <Deacon Castorena - Last Filed: 06/30/16 15:39> Discharge Summary - Discharge Summary/Plan Comment Discharge Summary/Plan Comment: Patient seen and [id number] , agree with discharge summary . Patient to F/up with Dr. Miller , repeat endoscopy in 3 mo - Patient Data Vitals - Most Recent: Last Vital Signs Temp 98.6 F 06/29/16 12:00 Pulse 61 06/29/16 12:00 Resp 13 06/29/16 13:05 BP 95/73 06/29/16 13:05 Pulse Ox 96 06/29/16 13:05 Med Orders - Current: Current Medications Discontinued Medications Fentanyl (Sublimaze) Confirm Administered Dose 100 mcg .ROUTE .STK-MED ONE Stop: 06/29/16 12:00 Sodium Chloride (Normal Saline) 1,000 mls @ 999 mls/hr IV STAT ONE Stop: 06/28/16 03:39 Last Admin: 06/28/16 02:44 Dose: 999 mls/hr Pantoprazole Sodium 80 mg/ (Sodium Chloride) 100 mls @ 10 mls/hr IV .Continuous EMANUEL Last Admin: 06/28/16 17:02 Dose: 10 mls/hr Sodium Chloride (Normal Saline) 1,000 mls @ 125 mls/hr IV ASDIRECTED [facility] Last Admin: 06/28/16 20:13 Dose: 125 mls/hr Lactated Ringer's (Ringers, Lactated) 1,000 mls @ 125 mls/hr IV ASDIRECTED [facility] Last Admin: 06/29/16 03:50 Dose: 125 mls/hr Pantoprazole Sodium 80 mg/ (Sodium Chloride) 100 mls @ 10 mls/hr IV Q10H [facility] Last Admin: 06/29/16 13:30 Dose: Not Given Influenza Virus Vaccine (Fluzone/Fluarix Vaccine) 60 mcg IM .ONCE ONE Stop: 06/28/16 04:43 Last Admin: 06/29/16 16:22 Dose: 60 mcg Midazolam HCl (Versed 1 Mg/Ml) Confirm Administered Dose 2 mg .ROUTE .STK-MED ONE Stop: 06/29/16 12:00 Pantoprazole Sodium (Protonix Iv) 80 mg IVPUSH .BOLUS ONE Stop: 06/28/16 03:12 Last Admin: 06/28/16 03:35 Dose: 80 mg Propofol (Diprivan 20 Ml) Confirm Administered Dose 400 mg .ROUTE .STK-MED ONE Stop: 06/29/16 12:00 Sucralfate (Carafate) 1 gm PO Q6H [facility] Last Admin: 06/29/16 10:40 Dose: Not Given *Q Meaningful Use (DIS) - VTE *Q VTE Criteria *Q: - Stroke *Q Stroke Criteria *Q: - AMI *Q AMI Criteria *Q:
== END 2016-06-29 16:30 | disposition home or self-care (01) | DRG 241 ==
LOC: MW.ED 02:38 → MW.MS 03:32
PROVIDERS: ADMIT Family Medicine; ATTEND Family Medicine
PROC: 30233N1 Transfusion of Nonautologous Red Blood Cells into Peripheral Vein, Percutaneous Approach (ICD-10-PCS; 2016-06-28)
PROC: 0DJ08ZZ Inspection of Upper Intestinal Tract, Via Natural or Artificial Opening Endoscopic (ICD-10-PCS; principal; 2016-06-29)
DX: K25.9 Gastric ulcer, unspecified as acute or chronic, without hemorrhage or perforation (principal); D62 Acute posthemorrhagic anemia; K92.1 Melena; R42 Dizziness and giddiness; I10 Essential (primary) hypertension; Z79.82 Long term (current) use of aspirin; Z79.899 Other long term (current) drug therapy
CPT/HCPCS: 00740; 36415; 36430; 71010; 71010-26; 80053; 81001; 82272; 84484; 85014; 85018; 85025; 85610; 86850; 86900; 86901; 86920; 86921; 86922; 87804; 90686; 93005; 96361; 96374; 99285; 99285-25; A9270-GY; C9113; J2250; J2704; J3010; J7030; J7040; J7120; P9016

== ENCOUNTER 2016-07-02 05:00 | Observation (INO) | payer BC ==
--- NOTE | 2016-07-02 05:16 | EDM.PDOC ---
ED HPI GENERAL MEDICAL PROBLEM - General Chief Complaint: Gastrointestinal Problem Stated Complaint: DIZZY Time Seen by Provider: 07/02/16 05:13 Source of Information: Reports: Patient - History of Present Illness INITIAL COMMENTS - FREE TEXT/NARRATIVE: HISTORY AND PHYSICAL: History of present illness: [] Patient presents with laceration near vertex, he slipped on ice going to his truck, denies loss of consciousness, he did have some mild dizziness on getting up however this is resolved pain the patient arrives to the area no fever nausea vomiting chills sweats no chest pain shortness breath headache dizziness or palpitation no bowel or urine symptoms Review of systems: As per history of present illness and below otherwise all systems reviewed and negative. Past medical history: As per history of present illness and as reviewed below otherwise noncontributory. Surgical history: As per history of present illness and as reviewed below otherwise noncontributory. Social history: No reported history of drug or alcohol abuse. Family history: As per history of present illness and as reviewed below otherwise noncontributory. Physical exam: HEENT: Atraumatic, normocephalic, pupils reactive, negative for conjunctival pallor or scleral icterus, mucous membranes moist, throat clear, neck supple, nontender, trachea midline. Lungs: Clear to auscultation, breath sounds equal bilaterally, chest nontender. Heart: S1S2, regular, negative for clicks, rubs, or JVD. Abdomen: Soft, nondistended, nontender. Negative for masses or hepatosplenomegaly. Negative for costovertebral tenderness. Pelvis: Stable nontender. Genitourinary: Deferred. Rectal: Deferred. Extremities: Atraumatic, negative for cords or calf pain. Neurovascular unremarkable. Neuro: Awake, alert, oriented. Cranial nerves II through XII unremarkable. Cerebellum unremarkable. Motor and sensory unremarkable throughout. Exam nonfocal. Skin 2 inch linear laceration running vertically to vertex Diagnostics: [] Patient refused head CT Therapeutics: [] Tetanus status is up-to-date #4 nelida placed without complication or complaint Impression: [] 2 inch linear laceration Definitive disposition and diagnosis as appropriate pending reevaluation and review of above. - Related Data Allergies Allergy/AdvReac Type Severity Reaction Status Date / Time No Known Allergies Allergy Verified 12/28/13 08:50 Home Meds: Home Meds Lisinopril 10 mg PO DAILY 06/28/16 [History] atorvaSTATin [Lipitor] 40 mg PO BEDTIME 06/28/16 [History] Pantoprazole Sodium [Protonix] 40 mg PO DAILY #30 tablet. 06/29/16 [Rx] Sucralfate [Carafate] 1 gm PO Q6H #120 cup 06/29/16 [Rx] Past Medical History Cardiovascular History: Reports: Hypertension, UT, Stents Other Cardiovascular History: Pt had UT about 10 yrs ago. Cause unknown. 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 Last visit about a year ago with no problems found. Has appointment in July of this year including an echocardiogram. Denies any dyspnea with exertion. 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 Heart rate regular today. Social & Family History - Family History Family Medical History: Noncontributory - Tobacco Use Smoking Status *Q: Never Smoker Second Hand Smoke Exposure: No - Caffeine Use Caffeine Use: Reports: Coffee - Recreational Drug Use Recreational Drug Use: No ED ROS GENERAL - Review of Systems Review Of Systems: See Below ED EXAM, GENERAL - Physical Exam Exam: See Below Course - Vital Signs Last Recorded V/S: Last Vital Signs Temp 36.6 C 07/02/16 05:07 Pulse 100 07/02/16 05:07 Resp 18 07/02/16 05:07 BP 100/65 07/02/16 05:07 Pulse Ox 97 07/02/16 05:07 - Orders/Labs/Meds Orders: Active Orders 24 hr Category Date Time Status EKG 12 Lead [EKG Documentation Completion] [RC] STAT Care 07/02/16 05:09 Active CBC WITH AUTO DIFF [HEME] Stat Lab 07/02/16 05:05 Received COMPREHENSIVE METABOLIC PN,CMP [CHEM] Stat Lab 07/02/16 05:05 Received TROPONIN I [CHEM] Stat Lab 07/02/16 05:13 Ordered TYPE AND SCREEN [BBK] Stat Lab 07/02/16 05:05 Received Departure - Departure Time of Disposition: 05:15 Disposition: Home, Self-Care 01 Condition: good Clinical Impression: Laceration Forms: ED Department Discharge Additional Instructions: Standard wound care Standard head injury precaution Nelida out in 5 days Return if symptoms persist or worsen or new concerning symptomatology develops The following information is given to patients seen in the emergency department who are being discharged to home. This information is to outline your options for follow-up care. We provide all patients seen in our emergency department with a follow-up referral. The need for follow-up, as well as the timing and circumstances, are variable depending upon the specifics of your emergency department visit. If you don't have a primary care physician on staff, we will provide you with a referral. We always advise you to contact your personal physician following an emergency department visit to inform them of the circumstance of the visit and for follow-up with them and/or the need for any referrals to a consulting specialist. The emergency department will also refer you to a specialist when appropriate. This referral assures that you have the opportunity for follow-up care with a specialist. All of these measure are taken in an effort to provide you with optimal care, which includes your follow-up. Under all circumstances we always encourage you to contact your private physician who remains a resource for coordinating your care. When calling for follow-up care, please make the office aware that this follow-up is from your recent emergency room visit. If for any reason you are refused follow-up, please contact the [facility] emergency department at and asked to speak to the emergency department charge nurse. - My Orders Last 24 Hours: My Active Orders 07/02/16 05:05 CBC WITH AUTO DIFF [HEME] Stat COMPREHENSIVE METABOLIC PN,CMP [CHEM] Stat TYPE AND SCREEN [BBK] Stat 07/02/16 05:09 EKG 12 Lead [EKG Documentation Completion] [RC] STAT 07/02/16 05:13 TROPONIN I [CHEM] Stat - Assessment/Plan Last 24 Hours: My Active Orders 07/02/16 05:05 CBC WITH AUTO DIFF [HEME] Stat COMPREHENSIVE METABOLIC PN,CMP [CHEM] Stat TYPE AND SCREEN [BBK] Stat 07/02/16 05:09 EKG 12 Lead [EKG Documentation Completion] [RC] STAT 07/02/16 05:13 TROPONIN I [CHEM] Stat
[2016-07-02] MEDS ORDERED: Pantoprazole 40 MG Vial IVPUSH ONE (05:25)
[2016-07-02] MEDS ORDERED: Pantoprazole 80 MG in Sodium Chloride 0.9% 100 ML IV SCH ×2 (05:30→08:45)
[2016-07-02 05:35] LABS: CHLORIDE,CL 106 mmol/L (98-110); SODIUM,NA 136 mmol/L (136-146)
[2016-07-02] MEDS ORDERED: Temazepam 15 MG Cap PO PRN (08:34)
[2016-07-02] MEDS ORDERED: Acetaminophen 325 MG Tab PO PRN (08:34)
[2016-07-02] MEDS ORDERED: Ondansetron 4 MG/2 ML SDV IVPUSH PRN (08:34)
--- NOTE | 2016-07-02 08:34 | PCM.HP ---
H&P History of Present Illness - General Date of Service: 07/02/16 Admit Problem/Dx: Admission Diagnosis/Problem Admission Diagnosis/Problem Peptic ulcer - History of Present Illness Initial Comments - Free Text/Narative: 55 yo male with PUD readmitted for dizziness, weakness and fatigue. He is discharged two days ago where he felt better and wanted to go home. His stools were no longer dark. He was transfused two units of blood and had endosocpy where there was 1.5 cm gastric ulcer. He was discharged with carafate and protonix and to avoid NSAID including asa. He states last night he started to have black tarry stools and he took carafate where he started to feel dizzy, tinintus, nauseated. He denies fever, chills, abdominal pain, vomiting or diarrhea. - Related Data Allergies/Adverse Reactions: Allergies Allergy/AdvReac Type Severity Reaction Status Date / Time No Known Allergies Allergy Verified 07/02/16 08:28 Home Medications: Home Meds Lisinopril 10 mg PO DAILY 06/28/16 [History] atorvaSTATin [Lipitor] 40 mg PO BEDTIME 06/28/16 [History] Pantoprazole Sodium [Protonix] 40 mg PO DAILY #30 tablet. 06/29/16 [Rx] Sucralfate [Carafate] 1 gm PO Q6H #120 cup 06/29/16 [Rx] Aspirin 81 mg PO DAILY 07/02/16 [History] Past Medical History - Past Health History Medical/Surgical History: Denies Medical/Surgical History HEENT History: Reports: Impaired vision Cardiovascular History: Reports: Hypertension, UT, Stents Other Cardiovascular History: Pt had UT about 10 yrs ago. Cause unknown. 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 Last visit about a year ago with no problems found. Has appointment in July of this year including an echocardiogram. Denies any dyspnea with exertion. 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 Heart rate regular today. Social & Family History - Family History Family Medical History: Noncontributory - Tobacco Use Smoking Status *Q: Never Smoker Second Hand Smoke Exposure: No - Caffeine Use Caffeine Use: Reports: Coffee Caffeine Use Comment: 3cups/day - Recreational Drug Use Recreational Drug Use: No H&P Review of Systems - Review of Systems: Review Of Systems: See Below General: Reports: no symptoms HEENT: Reports: no symptoms Pulmonary: Reports: no symptoms Cardiovascular: Reports: no symptoms Gastrointestinal: Reports: Black stool Genitourinary: Reports: no symptoms Musculoskeletal: Reports: no symptoms Skin: Reports: no symptoms Psychiatric: Reports: no symptoms Neurological: Reports: no symptoms Immunologic: Reports: no symptoms Exam - Exam Exam: See Below - Vital Signs Vital Signs: Last Vital Signs Temp 98.0 F 07/02/16 07:54 Pulse 76 07/02/16 07:54 Resp 16 07/02/16 07:54 BP 98/70 07/02/16 07:54 Pulse Ox 98 07/02/16 07:54 Weight: 89.811 kg - Exam General: alert, oriented, cooperative HEENT: Conjunctiva clear, EOMI Neck: supple, trachea midline Lungs: Clear to auscultation, Normal respiratory effort Cardiovascular: regular rate, regular rhythm Abdomen: normal bowel sounds, soft Back Exam: normal inspection Extremities: normal inspection Skin: warm, dry, intact Neurological: cranial nerves intact Neuro Extensive - Mental Status: alert, oriented x3 Neuro Extensive - Motor, Sensory, Reflexes: CN II-XII intact Psychiatric: alert, normal affect, normal mood - Patient Data Result Diagrams: 07/02/16 05:05 07/02/16 05:05 *Q Meaningful Use (ADM) - VTE *Q VTE Criteria *Q: - Stroke *Q Stroke Criteria *Q: - AMI *Q AMI Criteria *Q: Problem List Initiated/Reviewed/Updated: Yes Orders Last 24hrs: Active Orders 24 hr Category Date Time Status Communication Order [RC] STAT Care 07/02/16 06:15 Active Verify Patient Consent Obtain [RC] ASDIRECTED Care 07/02/16 06:14 Active FERRITIN [REF] Routine Lab 07/02/16 08:29 Ordered IRON/TIBC [CHEM] Routine Lab 07/02/16 08:28 Ordered Ferrous Sulfate Med 07/02/16 12:00 Ordered 325 mg PO TIDMEALS Pneumococcal Polyvalent-23 Vac [Pneumovax 23] Med 07/05/16 08:22 Once 0.5 ml IM .ONCE ONE Transfuse RBC [Transfuse Red Blood Cells] [COMM] Stat Oth 07/02/16 06:14 Ordered Medication Orders Ferrous Sulfate (Ferrous Sulfate) 325 mg PO TIDMEALS EMANUEL Pantoprazole Sodium 80 mg/ (Sodium Chloride) 100 mls @ 10 mls/hr IV .Continuous EMANUEL Last Admin: 07/02/16 05:55 Dose: 10 mls/hr Pneumococcal Polyvalent Vaccine (Pneumovax 23) 0.5 ml IM .ONCE ONE Stop: 07/05/16 08:23 Assessment/Plan Comment:: 55 yo male admitted for PUD NPO He is being transfused 2 units of PRBC secondary to symptomatic anemia. HB 9.3 in the ED on IV protonix drip IVF NS at 125 ml/hr start Ferrous sulfate check iron studies and H-pylori
[2016-07-02] MEDS ORDERED: Sodium Chloride 0.9% 1,000 ML IV SCH (09:15)
[2016-07-02] MEDS: Sodium Chloride 0.9% 1,000 ML IV SCH ×2 (09:28→19:15)
[2016-07-02] MEDS: Ferrous Sulfate 325 MG Tab PO SCH ×2 (14:00→17:23)
[2016-07-03] MEDS: Pantoprazole 80 MG in Sodium Chloride 0.9% 100 ML IV SCH ×2 (02:01→12:38)
[2016-07-03 07:02] LABS: CHLORIDE,CL 108 mmol/L (98-110); SODIUM,NA 139 mmol/L (136-146)
[2016-07-03] MEDS: Ferrous Sulfate 325 MG Tab PO SCH ×2 (09:00→12:38)
[2016-07-03 09:04] VITALS: BP 117/66
--- NOTE | 2016-07-03 09:41 | PCM.DCSUM1 ---
<Merlyn Jena - Last Filed: 07/08/16 07:29> Discharge Summary - Hospital Course Free Text/Narrative:: 55 yo male with history of OK s/p stent readmitted for GIB. He was recently discharged with carafate and protonix. He states after he took carafate he felt dizzy and passed out three times. He did not have abdominal pain or melena. He was brought by EMS. His orthostats were normal. In the ED, HB 9.2 and he was symptomatic. He was transfused 2 units of blood and post transfusion HB 11.6. He was started on protonix drip and monitored on telemetry. General surgery Dr. MONTEIRO consulted and he stated to continue protonix and f/u with him in clinic. Due to syncope, his serial troponins negative. carotid US was preformed prior to discharge. He has appointment with cardilogist on july 23, 2016 in [place] where he plans to follow up. - Discharge Data Discharge Date: 07/03/16 Discharge Disposition: Home, Self-Care 01 Condition: Good - Patient Summary/Data Operative Procedure(s) Performed: egd - Patient Instructions Diet: No Alcoholic Beverages Activity: As Tolerated Driving: May Drive Today Showering/Bathing: May Shower Notify Provider of: Fever, Increased Pain, Swelling and Redness, Drainage, Nausea and/or Vomiting - Discharge Plan Prescriptions/Med Rec: Pantoprazole Sodium [Protonix] 40 mg PO BID #60 tablet. Home Medications: Home Meds Lisinopril 10 mg PO DAILY 06/28/16 [History] atorvaSTATin [Lipitor] 40 mg PO BEDTIME 06/28/16 [History] Pantoprazole Sodium [Protonix] 40 mg PO BID #60 tablet. 07/03/16 [Rx] Patient Handouts: Gastrointestinal Bleeding, [id number], Pantoprazole tablets Forms: ED Department Discharge Referrals: PCP,None [Primary Care Provider] - (Follow-up with Merlyn Ayers on at 1:15 p.m.) - General Info Date of Service: 07/03/16 Functional Status: Reports: tolerating diet, ambulating, urinating - Review of Systems General: Reports: no symptoms HEENT: Reports: no symptoms Pulmonary: Reports: no symptoms Cardiovascular: Reports: no symptoms Gastrointestinal: Reports: No symptoms Genitourinary: Reports: no symptoms Musculoskeletal: Reports: no symptoms Skin: Reports: no symptoms Neurological: Reports: no symptoms Psychiatric: Reports: no symptoms - Patient Data Vitals - Most Recent: Last Vital Signs Temp 98.5 F 07/03/16 08:00 Pulse 73 07/03/16 08:00 Resp 19 07/03/16 08:00 BP 117/66 07/03/16 08:00 Pulse Ox 97 07/03/16 08:00 Weight - Most Recent: 197 lb 15.99 oz I&O - Last 24 hours: Intake & Output 07/02/16 07/03/16 07/03/16 22:59 06:59 14:59 Intake Total 2129 1500 Output Total 1350 1700 Balance 779 -200 Lab Results - Last 24 hrs: Laboratory Results - last 24 hr 07/02/16 07/02/16 07/02/16 Range/Units 14:36 14:36 19:11 WBC 16.36 H (4.0-11.0) K/uL RBC 3.69 L (4.50-5.90) M/uL Hgb 11.6 L (13.0-17.0) g/dL Hct 33.4 L (38.0-50.0) % MCV 90.5 (80.0-98.0) fL MCH 31.4 (27.0-32.0) pg MCHC 34.7 (31.0-37.0) g/dL RDW Std Deviation 43.4 (28.0-62.0) fl RDW Coeff of Mila 14 (11.0-15.0) % Plt Count 201 (150-400) K/uL MPV 8.70 (7.40-12.00) fL Neut % (Auto) (48.0-80.0) % Lymph % (Auto) (16.0-40.0) % Johnson % (Auto) (0.0-15.0) % Eos % (Auto) (0.0-7.0) % Baso % (Auto) (0.0-1.5) % Neut # (1.4-5.7) K/uL Lymph # (0.6-2.4) K/uL Johnson # (0.0-0.8) K/uL Eos # (0.0-0.7) K/uL Baso # (0.0-0.1) K/uL Nucleated RBC % 0.0 /100WBC Nucleated RBCs # 0 K/uL Sodium (136-146) mmol/L Potassium (3.5-5.1) mmol/L Chloride (98-110) mmol/L Carbon Dioxide (21-31) mmol/L BUN (6.0-23.0) mg/dL Creatinine (0.6-1.5) mg/dL Est Cr Clr Drug Dosing mL/min Estimated GFR (MDRD) ml/min Glucose (60-110) mg/dL Calcium (8.8-10.8) mg/dL Troponin I < 0.10 < 0.10 (0.0-0.29) NG/ML 07/03/16 07/03/16 Range/Units 05:55 05:55 WBC 8.99 (4.0-11.0) K/uL RBC 3.62 L (4.50-5.90) M/uL Hgb 11.3 L (13.0-17.0) g/dL Hct 32.8 L (38.0-50.0) % MCV 90.6 (80.0-98.0) fL MCH 31.2 (27.0-32.0) pg MCHC 34.5 (31.0-37.0) g/dL RDW Std Deviation 44.5 (28.0-62.0) fl RDW Coeff of Mila 14 (11.0-15.0) % Plt Count 204 (150-400) K/uL MPV 8.90 (7.40-12.00) fL Neut % (Auto) 61.8 (48.0-80.0) % Lymph % (Auto) 25.7 (16.0-40.0) % Johnson % (Auto) 10.2 (0.0-15.0) % Eos % (Auto) 2.1 (0.0-7.0) % Baso % (Auto) 0.2 (0.0-1.5) % Neut # 5.6 (1.4-5.7) K/uL Lymph # 2.3 (0.6-2.4) K/uL Johnson # 0.9 H (0.0-0.8) K/uL Eos # 0.2 (0.0-0.7) K/uL Baso # 0.0 (0.0-0.1) K/uL Nucleated RBC % 0.0 /100WBC Nucleated RBCs # 0 K/uL Sodium 139 (136-146) mmol/L Potassium 4.1 (3.5-5.1) mmol/L Chloride 108 (98-110) mmol/L Carbon Dioxide 24 (21-31) mmol/L BUN 17 (6.0-23.0) mg/dL Creatinine 0.8 (0.6-1.5) mg/dL Est Cr Clr Drug Dosing 103.31 mL/min Estimated GFR (MDRD) > 60.0 ml/min Glucose 87 (60-110) mg/dL Calcium 8.4 L (8.8-10.8) mg/dL Troponin I (0.0-0.29) NG/ML SAGAR Results - Last 24 hrs: Microbiology 07/02/16 14:30 Stool Occult Blood (SAGAR) - Final Stool / Feces - Stool, Formed POSITIVE OCCULT BLOOD Med Orders - Current: Current Medications Acetaminophen (Tylenol) 650 mg PO Q4H PRN PRN Reason: Pain (Mild 1-3)/fever Ferrous Sulfate (Ferrous Sulfate) 325 mg PO TIDMEALS [facility] Last Admin: 07/03/16 09:00 Dose: 325 mg Pantoprazole Sodium 80 mg/ (Sodium Chloride) 100 mls @ 10 mls/hr IV Q10H [facility] Last Admin: 07/03/16 02:01 Dose: 10 mls/hr Ondansetron HCl (Zofran) 4 mg IVPUSH Q4H PRN PRN Reason: Nausea Pneumococcal Polyvalent Vaccine (Pneumovax 23) 0.5 ml IM .ONCE ONE Stop: 07/05/16 08:23 Temazepam (Restoril) 15 mg PO BEDTIME PRN PRN Reason: Sleep Discontinued Medications Pantoprazole Sodium 80 mg/ (Sodium Chloride) 100 mls @ 10 mls/hr IV .Continuous [facility] Last Admin: 07/02/16 05:55 Dose: 10 mls/hr Pantoprazole Sodium 80 mg/ (Sodium Chloride) 100 mls @ 10 mls/hr IV .Continuous [facility] Last Admin: 07/02/16 16:10 Dose: 10 mls/hr Sodium Chloride (Normal Saline) 1,000 mls @ 125 mls/hr IV STAT [facility] Sodium Chloride (Normal Saline) 1,000 mls @ 125 mls/hr IV ASDIRECTED [facility] Last Admin: 07/02/16 19:15 Dose: 125 mls/hr Pantoprazole Sodium (Protonix Iv) 80 mg IVPUSH .BOLUS ONE Stop: 07/02/16 05:26 Last Admin: 07/02/16 05:34 Dose: 80 mg - Exam General: Reports: alert, oriented HEENT: Reports: Pupils equal, EOMI Neck: Reports: supple, trachea midline Lungs: Reports: Clear to auscultation, Normal respiratory effort Cardiovascular: Reports: regular rate, regular rhythm Abdomen: Reports: bowel sounds present, soft Extremities: Reports: no edema Skin: Reports: warm, dry Neurological: Reports: no new focal deficit Psy/Mental Status: Reports: alert, normal affect, normal mood *Q Meaningful Use (DIS) - VTE *Q VTE Criteria *Q: - Stroke *Q Stroke Criteria *Q: - AMI *Q AMI Criteria *Q: <Deacon Castorena - Last Filed: 07/08/16 18:42> Discharge Summary - Hospital Course Free Text/Narrative:: It was determined that patient had a allergic reaction to carafate , as he felt dizzy and had ringing in the ears after taking it. he also developed 3 times syncope. Patient did not have melena , just occult blood positive and was discharge home on PPI 40 mg po Bid and iron sulphate tabsTID. Patient to f/up echo report with [employer]. Patient was seen and examined and discharge summary was discussed with resident. Agree with Dc summary - Discharge Diagnosis/Problem(s) (1) Syncope and collapse SNOMED Code(s): 481422293 ICD Code: R55 - SYNCOPE AND COLLAPSE Status: Acute (2) Dizziness and giddiness SNOMED Code(s): 615035356 ICD Code: R42 - DIZZINESS AND GIDDINESS Status: Acute (3) Adverse drug effect SNOMED Code(s): 93171102 ICD Code: T88.7XXA - UNSP ADVERSE EFFECT OF DRUG OR MEDICAMENT, INIT ENCNTR Status: Acute - Patient Data Vitals - Most Recent: Last Vital Signs Temp 98.5 F 07/03/16 08:00 Pulse 73 07/03/16 08:00 Resp 19 07/03/16 08:00 BP 117/66 07/03/16 08:00 Pulse Ox 97 07/03/16 08:00 Med Orders - Current: Current Medications Discontinued Medications Acetaminophen (Tylenol) 650 mg PO Q4H PRN PRN Reason: Pain (Mild 1-3)/fever Ferrous Sulfate (Ferrous Sulfate) 325 mg PO TIDMEALS [facility] Last Admin: 07/03/16 12:38 Dose: Not Given Pantoprazole Sodium 80 mg/ (Sodium Chloride) 100 mls @ 10 mls/hr IV .Continuous [facility] Last Admin: 07/02/16 05:55 Dose: 10 mls/hr Pantoprazole Sodium 80 mg/ (Sodium Chloride) 100 mls @ 10 mls/hr IV .Continuous [facility] Last Admin: 07/02/16 16:10 Dose: 10 mls/hr Sodium Chloride (Normal Saline) 1,000 mls @ 125 mls/hr IV STAT [facility] Sodium Chloride (Normal Saline) 1,000 mls @ 125 mls/hr IV ASDIRECTED [facility] Last Admin: 07/02/16 19:15 Dose: 125 mls/hr Pantoprazole Sodium 80 mg/ (Sodium Chloride) 100 mls @ 10 mls/hr IV Q10H [facility] Last Admin: 07/03/16 12:38 Dose: Not Given Ondansetron HCl (Zofran) 4 mg IVPUSH Q4H PRN PRN Reason: Nausea Pantoprazole Sodium (Protonix Iv) 80 mg IVPUSH .BOLUS ONE Stop: 07/02/16 05:26 Last Admin: 07/02/16 05:34 Dose: 80 mg Pneumococcal Polyvalent Vaccine (Pneumovax 23) 0.5 ml IM .ONCE ONE Stop: 07/05/16 08:23 Temazepam (Restoril) 15 mg PO BEDTIME PRN PRN Reason: Sleep *Q Meaningful Use (DIS) - VTE *Q VTE Criteria *Q: - Stroke *Q Stroke Criteria *Q: - AMI *Q AMI Criteria *Q:
[2016-07-05] MEDS ORDERED: Pneumococcal Polyvalent-23 Vaccine 0.5 ML SDV IM ONE (08:22)
--- NOTE | 2016-07-05 17:34 | US ---
EXAM DATE: 07/02/16 PATIENT'S AGE: 55 Patient: ANDREI HERNANDEZ Facility: [place], [place] Site . Site : [id number] Study: US Neck Angio [id number]/4/2017 12:52:59 PM Ordering Physician: Raffaele Worthy Final Report: INDICATION: Syncope. TECHNIQUE: Ultrasound carotid bilateral arterial duplex with color Doppler and spectral Doppler analysis. COMPARISON: None FINDINGS: Multiple sonographic images with grayscale, color Doppler and spectral Doppler analysis were obtained demonstrate minimal visualized atherosclerotic plaque in the carotid arteries bilaterally. Velocities are within normal limits bilaterally. The right ICA/CCA ratio is 1.1 and the left ICA/CCA ratio is 1.2. Spectral waveforms are normal. Both vertebral arteries are antegrade. IMPRESSION: 1. Minimal bilateral carotid artery atherosclerosis. 2. Estimated stenosis in the right internal carotid artery is less than 50% by NASCET criteria. 3. Estimated stenosis in the left internal carotid artery is less than 50% by NASCET criteria. Dictated by Herminio Yuan MD @ Jul 05 2016 6:50AM (Electronic Signature) Report Signed by Proxy and Original Signed Document filed in the Medical Record. CASTRO
--- NOTE | 2016-07-16 22:43 | ECHO ---
The echocardiogram report can be seen in this patient's EMR in the Reports section. CASTRO
== END 2016-07-03 13:05 | disposition home or self-care (01) ==
LOC: MW.ED 05:00 → MW.MS 06:05
PROVIDERS: ADMIT Internal Medicine; ATTEND Internal Medicine
DX: T47.1X5A Adverse effect of other antacids and anti-gastric-secretion drugs, initial encounter (principal); R55 Syncope and collapse; K92.2 Gastrointestinal hemorrhage, unspecified; D50.0 Iron deficiency anemia secondary to blood loss (chronic); R19.5 Other fecal abnormalities; Z79.899 Other long term (current) drug therapy; Z98.61 Coronary angioplasty status
CPT/HCPCS: 36415; 36430; 80048; 80053; 82272; 82728; 83550; 84484; 85025; 85027; 85610; 86677; 86850; 86900; 86901; 86920; 86921; 86922; 93005; 93306; 93880; 96365; 96366; 96376; 99285; A9270; C9113; G0378; J7030; J7040; P9016

== ENCOUNTER 2016-11-18 10:34 | Day surgery (SDC) | payer BC ==
[~2016-11-18 10:34] MED LIST: Lactated Ringers 1,000 ML IV SCH
--- NOTE | 2016-11-18 10:50 | PCM.PREANE ---
Preanesthetic Assessment - Anesthesia/Transfusion/Family Hx Anesthesia History: Prior Anesthesia Without Reaction Family History of Anesthesia Reaction: No Transfusion History: No Prior Transfusion(s) Intubation History: Unknown - Review of Systems General: No Symptoms Pulmonary: No Symptoms Cardiovascular: No Symptoms Gastrointestinal: No Symptoms, Other (3 months follow up EGD for bleeeding gastric ulcer) Neurological: No Symptoms Other: Reports: None - Physical Assessment Height: 1.7 m Weight: 83.915 kg ASA Class: 2 Mental Status: Alert & Oriented x3 Airway Class: Mallampati = 2 Dentition: Reports: Normal Dentition Thyro-Mental Finger Breadths: 3 Mouth Opening Finger Breadths: 3 ROM/Head Extension: Full Lungs: Clear to Auscultation, Normal Respiratory Effort Cardiovascular: Regular Rate, Regular Rhythm - Allergies Allergies/Adverse Reactions: Allergies Allergy/AdvReac Type Severity Reaction Status Date / Time sucralfate [From Carafate] Allergy Syncope Verified 07/02/16 13:13 - Blood Blood Available: No - Anesthesia Plan Pre-Op Medication Ordered: None - Acknowledgements Anesthesia Type Planned: MAC Pt an Appropriate Candidate for the Planned Anesthesia: Yes Alternatives and Risks of Anesthesia Discussed w Pt/Guardian: Yes Pt/Guardian Understands and Agrees with Anesthesia Plan: Yes PreAnesthesia Questionnaire - Past Health History Medical/Surgical History: Denies Medical/Surgical History HEENT History: Reports: Impaired Vision, Other (See Below) Other HEENT History: wears glasses Cardiovascular History: Reports: Hypertension, ND, Stents Other Cardiovascular History: Pt had ND in 2007 with snent placement x1. Has had regular follow up visits with pulverizer tender in [place]. Last appointment in September of this year. "everything looked good" Gastrointestinal History: Reports: GI Bleed, Other (See Below) Other Gastrointestinal History: gastric ulcer with GI bleed - Past Surgical History Head Surgeries/Procedures: Reports: None Cardiovascular Surgical History: Reports: Coronary Artery Stent ('08 no excercize restrictions) GI Surgical History: Reports: EGD - SUBSTANCE USE Smoking Status *Q: Never Smoker Tobacco Use Within Last Twelve Months: No Second Hand Smoke Exposure: No Recreational Drug Use History: No - HOME MEDS Home Medications: Home Meds Lisinopril 10 mg PO DAILY 06/28/16 [History] atorvaSTATin [Lipitor] 40 mg PO BEDTIME 06/28/16 [History] Pantoprazole Sodium [Protonix] 40 mg PO BID #60 tablet. 07/03/16 [Rx] Aspirin [[place] Aspirin] 81 mg PO DAILY 11/16/16 [History] - CURRENT (IN HOUSE) MEDS Current Meds: Current Medications Lactated Ringer's (Ringers, Lactated) 1,000 mls @ 125 mls/hr IV ASDIRECTED [facility]
[2016-11-18] MEDS ORDERED: Lidocaine 2% 5 ML SDV ONE (12:42)
[2016-11-18] MEDS ORDERED: fentaNYL 100 MCG/2 ML SDV ONE (12:43)
[2016-11-18] MEDS ORDERED: Midazolam 1 MG/ML 2 ML SDV ONE (12:43)
[2016-11-18] MEDS ORDERED: Propofol 200 MG/20 ML SDV ONE (12:43)
--- NOTE | 2016-11-18 13:26 | PCM.OPNOTE ---
- General Post-Op/Procedure Note Date of Surgery/Procedure: 11/18/16 Operative Procedure(s): EGD W BX. COLONOSCOPY Findings: see dict [id number] Pre Op Diagnosis: resolved gib Post-Op Diagnosis: Same Anesthesia Technique: Moderate Sedation Primary Surgeon: Isaiah Miller Pathology: egd w bx Condition: Good
[2016-11-18 14:33] VITALS: BP 108/75
--- NOTE | 2016-11-18 21:58 | OR ---
SURGEON: Isaiah Miller MD DATE OF PROCEDURE: 11/18/2016 PREOPERATIVE DIAGNOSIS: Resolving gastrointestinal bleeding. POSTOPERATIVE DIAGNOSES: 1. Esophagogastroduodenoscopy diagnosis is acid reflux. 2. Colonoscopy diagnosis is hemorrhoids. PROCEDURES PERFORMED: 1. Esophagogastroduodenoscopy with biopsy. 2. Colonoscopy. DESCRIPTION OF PROCEDURE: EGD: The patient was taken to the endoscopy room, and with the STRIP FEEDER, Diprivan was administered. A well-lubricated EGD scope was gently inserted through the oropharynx, down the esophagus, passing through the gastroesophageal junction, into the stomach. The mucosa was examined upon the passage. Any etiology will be noted. Once in the stomach, we continued to advance to the distal antrum, passed through the pylorus into the second portion of the duodenum. Again, the mucosa was examined for any abnormality and etiology. The scope was then retrieved back to the stomach and then retroflexed to look at the fundus of the stomach. If a biopsy was indicated, we will biopsy the antrum, body, and gastroesophageal junction. The air will be sucked out while the scope is retrieved to reduce the patient's discomfort. The patient tolerated the procedure well. There were no intraoperative complications. Dr. Miller was present through the whole procedure. Prior to surgery, a time-out had been called, the patient identified, procedure identified and antibiotic administered. The patient was taken to the endoscopy room. A time out was called, patient identified, and procedure identified. Diprivan was then administrated. Patient went from awake to sleep, hearing doctor talking or door closing is normal. Perineum inspection and digital examination were then performed. A well- lubricated colonoscope was gently inserted through the rectum, advanced past the rectosigmoid junction, the descending colon, splenic flexure, transverse colon, hepatic flexure, ascending colon, arrived to the cecum. Cecum was identified as dictated in the finding. Then the scope was carefully withdrawn while attention was paid to the mucosal surface for any abnormality. Air will be sucked out during the scope withdrawal. At the rectum, retroflexed to examine any rectal diseases, fistula or hemorrhoids. Patient tolerated procedure well. There were no intraoperative complications, and Dr. Miller was present throughout the whole procedure. FINDINGS: EGD findings: 1. The patient is easily sedated with STRIP FEEDER and Diprivan. The patient is soundly snoring. 2. Oropharynx and proximal esophagus is free of disease. GE junction at 40, shows very mild acid reflux, and mild salmon-color change consistent with acid reflux, and stomach is coated with sucralfate, so that compromised the study and some irrigation able to push away the sucralfate, so this is a compromised study and there is no ulcer observed across and antrum is normal in appearance. Duodenum is grossly normal. Scope retrieved back to the stomach and retroflexed to look at the fundus of stomach, there is no hiatal hernia. Biopsy done at antrum and body, and sucked out the air while scope pulling out. Colonoscopy findings: 1. Bowel prep is optimum with large amount of opaque liquid stool coating the mucosa, so requiring constant irrigation. No semi-formed stool. Colon was rather straight forward. Cecum indicated by ileocecal fold, one-to-one indentation, and light emittance, and appendiceal orifice is not observed. Mucosa examined upon scope pulling out and with large amount of irrigation as the patient has, bowel prep is suboptimum. There is no polyp, mass, growth, inflammation, stricture, ulceration, diverticulosis, none of those, and there is no black stool. The patient has mild internal hemorrhoids, no external hemorrhoids. The patient will benefit from repeat colonoscopy 10 years from today or if clinically indicated otherwise. The patient can return to the office on an as needed basis for the followup report. GALLITO HUSSEIN /[id number]
== END 2016-11-18 14:10 | disposition home or self-care (01) ==
LOC: MW.SDS 10:34
PROVIDERS: ATTEND Surgery
PROC: 0DB68ZX Excision of Stomach, Via Natural or Artificial Opening Endoscopic, Diagnostic (ICD-10-PCS; principal; 2016-11-18)
PROC: 0DJD8ZZ Inspection of Lower Intestinal Tract, Via Natural or Artificial Opening Endoscopic (ICD-10-PCS; 2016-11-18)
DX: K29.50 Unspecified chronic gastritis without bleeding (principal); B96.81 Helicobacter pylori [H. pylori] as the cause of diseases classified elsewhere; K21.9 Gastro-esophageal reflux disease without esophagitis; K64.8 Other hemorrhoids; I25.10 Atherosclerotic heart disease of native coronary artery without angina pectoris; I25.2 Old myocardial infarction; I10 Essential (primary) hypertension; Z88.8 Allergy status to other drugs, medicaments and biological substances; Z79.82 Long term (current) use of aspirin; Z79.899 Other long term (current) drug therapy; Z95.5 Presence of coronary angioplasty implant and graft; Z98.890 Other specified postprocedural states; Z87.19 Personal history of other diseases of the digestive system
CPT/HCPCS: 43239; 45378; J2250; J3010; J7120; 00740; 88305; 88312; J2704

== ENCOUNTER 2017-05-10 09:11 | Day surgery (SDC) | payer BC ==
[~2017-05-10 09:11] MED LIST changes: +Lidocaine 2% 5 ML SDV ONE; +Propofol 200 MG/20 ML SDV ONE; +fentaNYL 100 MCG/2 ML SDV ONE
--- NOTE | 2017-05-10 10:14 | PCM.PREANE ---
Preanesthetic Assessment - Anesthesia/Transfusion/Family Hx Anesthesia History: Prior Anesthesia Without Reaction Family History of Anesthesia Reaction: No Transfusion History: Prior Transfusion Without Reaction Intubation History: Unknown - Review of Systems General: No Symptoms Pulmonary: No Symptoms Cardiovascular: No Symptoms Gastrointestinal: Other (s/p treatment for H.pylori for 3 months- improving) Neurological: No Symptoms Other: Reports: None - Physical Assessment NPO Status Date: 05/09/17 NPO Status Time: 20:00 O2 Sat by Pulse Oximetry: 97 Respiratory Rate: 16 Vital Signs: Last Vital Signs Temp 36.2 C 05/10/17 09:23 Pulse 62 05/10/17 09:23 Resp 16 05/10/17 09:23 BP 119/84 05/10/17 09:23 Pulse Ox 97 05/10/17 09:23 Height: 1.7 m Weight: 87.09 kg ASA Class: 2 Mental Status: Alert & Oriented x3 Airway Class: Mallampati = 2 Dentition: Reports: Normal Dentition Thyro-Mental Finger Breadths: 3 Mouth Opening Finger Breadths: 3 ROM/Head Extension: Full Lungs: Clear to Auscultation, Normal Respiratory Effort - Allergies Allergies/Adverse Reactions: Allergies Allergy/AdvReac Type Severity Reaction Status Date / Time sucralfate [From Carafate] Allergy Syncope Verified 05/06/17 10:22 - Blood Blood Available: No - Anesthesia Plan Pre-Op Medication Ordered: None - Acknowledgements Anesthesia Type Planned: MAC Pt an Appropriate Candidate for the Planned Anesthesia: Yes Alternatives and Risks of Anesthesia Discussed w Pt/Guardian: Yes Pt/Guardian Understands and Agrees with Anesthesia Plan: Yes PreAnesthesia Questionnaire - Past Health History Medical/Surgical History: Denies Medical/Surgical History HEENT History: Reports: Impaired Vision, Other (See Below) Other HEENT History: wears glasses Cardiovascular History: Reports: High Cholesterol, Hypertension, [place], Stents Other Cardiovascular History: Pt had [place] in 2007 with stent placement x1. 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 Last appointment in September of this year. "everything looked good" Gastrointestinal History: Reports: GI Bleed, Helicobacter Pylori, PUD, Other ( See Below) Other Gastrointestinal History: gastric ulcer with GI bleed Endocrine/Metabolic History: Reports: Obesity/BMI 30+ - Past Surgical History Head Surgeries/Procedures: Reports: None Cardiovascular Surgical History: Reports: Coronary Artery Stent GI Surgical History: Reports: Colonoscopy, EGD (3 months ago) - SUBSTANCE USE Smoking Status *Q: Never Smoker Tobacco Use Within Last Twelve Months: No Second Hand Smoke Exposure: No Recreational Drug Use History: No - HOME MEDS Home Medications: Home Meds Lisinopril 10 mg PO DAILY 06/28/16 [History] atorvaSTATin [Lipitor] 40 mg PO BEDTIME 06/28/16 [History] Pantoprazole Sodium [Protonix] 40 mg PO BID #60 tablet. 07/03/16 [Rx] Aspirin [[place] Aspirin] 81 mg PO DAILY 11/16/16 [History] - CURRENT (IN HOUSE) MEDS Current Meds: Current Medications Lactated Ringer's (Ringers, Lactated) 1,000 mls @ 125 mls/hr IV ASDIRECTED [facility] Last Admin: 05/10/17 09:24 Dose: 125 mls/hr Discontinued Medications Fentanyl (Sublimaze) Confirm Administered Dose 100 mcg .ROUTE .STK-MED ONE Stop: 05/10/17 07:40 Lidocaine (Xylocaine-Mpf 2%) Confirm Administered Dose 5 ml .ROUTE .STK-MED ONE Stop: 05/10/17 07:41 Propofol (Diprivan 20 Ml) Confirm Administered Dose 200 mg .ROUTE .STK-MED ONE Stop: 05/10/17 07:40
--- NOTE | 2017-05-10 12:22 | PCM.OPNOTE ---
- General Post-Op/Procedure Note Date of Surgery/Procedure: 05/10/17 Operative Procedure(s): egd w bx Findings: see dict [id number] Pre Op Diagnosis: h pylori infection Post-Op Diagnosis: Same Anesthesia Technique: Moderate Sedation Primary Surgeon: sIaiah iMller Pathology: sent for h pylori Complications: None Condition: Good
[2017-05-10 12:45] VITALS: BP 106/73
--- NOTE | 2017-05-10 18:45 | OR ---
SURGEON: Isaiah Miller MD DATE OF PROCEDURE: 05/10/2017 PREOPERATIVE DIAGNOSIS: Helicobacter pylori infection and abdominal pain. POSTOPERATIVE DIAGNOSIS: Helicobacter pylori infection and abdominal pain. PROCEDURE PERFORMED: Esophagogastroduodenoscopy with biopsy. COMPLICATIONS: None. PROCEDURE IN DETAIL: EGD: The patient was taken to the endoscopy room, and with the TECHNICAL AIDE, Diprivan was administered. A well-lubricated EGD scope was gently inserted through the oropharynx, down the esophagus, passing through the gastroesophageal junction, into the stomach. The mucosa was examined upon the passage. Any etiology will be noted. Once in the stomach, we continued to advance to the distal antrum, passed through the pylorus into the second portion of the duodenum. Again, the mucosa was examined for any abnormality and etiology. The scope was then retrieved back to the stomach and then retroflexed to look at the fundus of the stomach. If a biopsy was indicated, we will biopsy the antrum, body, and gastroesophageal junction. The air will be sucked out while the scope is retrieved to reduce the patient's discomfort. The patient tolerated the procedure well. There were no intraoperative complications. Dr. Miller was present through the whole procedure. Prior to surgery, a time-out had been called, the patient identified, procedure identified and antibiotic administered. FINDINGS: 1. The patient is easily sedated with TECHNICAL AIDE and Diprivan. The patient is soundly snoring. 2. Oropharynx and proximal esophagus were free of disease. GE junction was with significant salmon color change consistent acid reflux and no stricture or blood ulcer. Stomach rugae was normal in appearance and no bile, food particle, blood or ulcer. Antrum was a little bit inflamed. Duodenum was grossly normal. Scope was retrieved back to the stomach and retroflexed at the fundus of the stomach. There was no hiatal hernia. Biopsy was done at antrum, body, GE junction at 40 and sucked out the air while scope pulling out. GALLITO / JOVITA /[id number]
== END 2017-05-10 12:50 | disposition home or self-care (01) ==
LOC: MW.SDS 09:11
PROVIDERS: ATTEND Surgery
DX: K29.50 Unspecified chronic gastritis without bleeding (principal); K20.9 Esophagitis, unspecified; I25.10 Atherosclerotic heart disease of native coronary artery without angina pectoris; I25.2 Old myocardial infarction; I10 Essential (primary) hypertension; Z79.82 Long term (current) use of aspirin; Z79.899 Other long term (current) drug therapy; Z88.8 Allergy status to other drugs, medicaments and biological substances
CPT/HCPCS: 43239; 88305; 88312; J3010; J7120; 00731; J2704